=== PATIENT | female | born 1980 | race American Indian/Alaskan Native ===

== ENCOUNTER 2018-12-01 03:51 | Emergency (ER) | payer MEDICARE ==
[2018-12-01] MEDS ORDERED: BANOPHEN PO ONE (04:23)
[2018-12-01] MEDS ORDERED: BENADRYL IM ONE (04:30)
[2018-12-01] MEDS ORDERED: BENADRYL ONE (04:32)
[2018-12-01] MEDS ORDERED: GEODON IM ONE ×2 (06:49→06:51)
[2018-12-01] MEDS ORDERED: WATER FOR INJ Sterile (PF) IM ONE (06:49)
[2018-12-01] MEDS ORDERED: WATER FOR INJ Sterile (PF) 10 ML ONE (06:51)
--- NOTE | 2018-12-01 07:51 | Emergency Department Report ---
ED Psych HPI - General Chief Complaint: Psych Stated Complaint: MH EVAL/SUICIDAL Time Seen by Provider: 12/01/18 06:03 Source: patient Mode of arrival: Ambulatory - History of Present Illness Initial Comments: This is a 38 year old female who was brought in by patent lawyer for apparent psychotic behavior. She was placed in confinement. She had been given Benadryl by the prior emergency physician benign next psychotic. On my encounter the patient is floridly psychotic. She states she is in the "Looney contunium". She has pressurized speech and flight of ideas. She is laying on the floor mattress. She is not mentally competent nor expected to care for herself. Speech is very tangential and filled with ideas of reference and delusions. She has a history of a bipolar psychosis. MD Complaint: other -: unknown Associated Psychiatric Symptoms: racing thoughts, delusions History of same: Yes Quality: constant Improves With: none Worsens With: none Context: other (unknown) - Related Data Home Medications Medication Instructions Recorded Confirmed Last Taken Unobtainable 12/01/18 12/01/18 Unknown Allergies Allergy/AdvReac Type Severity Reaction Status Date / Time apricots Allergy Rash Uncoded 07/24/18 23:11 ED Review of Systems ROS: Stated complaint: MH EVAL/SUICIDAL Other details as noted in HPI Comment: Unobtainable due to pts medical conditions ED Past Medical Hx - Past Medical History Previous Medical History?: Yes Hx Psychiatric Treatment: Yes (schizo affective disorder, bipolar) - Surgical History Past Surgical History?: Yes Additional Surgical History: unknown, unobtainable - Social History Smoking Status: Unknown if ever smoked - Medications Home Medications: Home Medications Medication Instructions Recorded Confirmed Last Taken Type Unobtainable 12/01/18 12/01/18 Unknown History ED Physical Exam - General Limitations: Other (acute psychosis) General appearance: alert, other (agitated) - Head Head exam: Present: atraumatic, normocephalic - Eye Eye exam: Present: normal appearance, PERRL, EOMI. Absent: scleral icterus - ENT ENT exam: Present: mucous membranes moist - Neck Neck exam: Present: normal inspection - Respiratory Respiratory exam: Present: normal lung sounds bilaterally. Absent: respiratory distress - Cardiovascular Cardiovascular Exam: Present: regular rate, normal rhythm. Absent: systolic m urmur, diastolic murmur, rubs, gallop - GI/Abdominal GI/Abdominal exam: Present: soft, normal bowel sounds. Absent: distended, tenderness, guarding, rebound, rigid - Extremities Exam Extremities exam: Present: normal inspection - Back Exam Back exam: Present: normal inspection - Neurological Exam Neurological exam: Present: alert, altered, CN II-XII intact. Absent: motor sensory deficit - Psychiatric Psychiatric exam: Present: agitated, anxious - Skin Skin exam: Present: warm, dry, intact, normal color. Absent: rash ED Course Vital Signs 12/01/18 12/01/18 12/01/18 05:53 05:58 07:57 Temperature 97.5 F L 97.5 F L 97.8 F Pulse Rate 91 H 91 H 76 Respiratory 18 16 Rate Blood Pressure 133/76 Blood Pressure 133/76 128/63 [Left] O2 Sat by Pulse 100 100 100 Oximetry - Reevaluation(s) Reevaluation #1: Given Gina. Thereafter mental health counselor, Mauricio, stated the patient had some suicidal ideation and "wanted to destroy the world". 12/01/18 08:43 12/01/18 08:43 She is placed on a 1013. She's had previous psychiatric admissions and transfer is pending. ED Medical Decision Making - Lab Data Result diagrams: 12/01/18 07:49 12/01/18 07:49 Laboratory Results - last 24 hr 12/01/18 12/01/18 12/01/18 07:49 07:49 07:49 WBC 12.2 H RBC 3.84 Hgb 12.5 Hct 36.7 MCV 96 MCH 33 H MCHC 34 RDW 15.9 H Plt Count 305 Lymph % (Auto) 10.3 L [place] % (Auto) 8.4 H Eos % (Auto) 0.4 Baso % (Auto) 0.6 Lymph # 1.3 [place] # 1.0 H Eos # 0.0 Baso # 0.1 Seg Neutrophils % 80.3 H Seg Neutrophils # 9.8 H Sodium 138 Potassium 4.2 Chloride 97.2 L Carbon Dioxide 26 Anion Gap 19 BUN 12 Creatinine 0.7 Estimated GFR > 60 BUN/Creatinine Ratio 17 Glucose 82 Calcium 9.3 Total Bilirubin 0.60 AST 28 ALT 20 Alkaline Phosphatase 49 Total Creatine Kinase CK-MB (CK-2) CK-MB (CK-2) Rel Index Total Protein 7.3 Albumin 4.5 Albumin/Globulin Ratio 1.6 TSH 1.930 HCG, Qual Salicylates Acetaminophen Plasma/Serum Alcohol 12/01/18 12/01/18 12/01/18 07:49 07:49 07:49 WBC RBC Hgb Hct MCV MCH MCHC RDW Plt Count Lymph % (Auto) [place] % (Auto) Eos % (Auto) Baso % (Auto) Lymph # [place] # Eos # Baso # Seg Neutrophils % Seg Neutrophils # Sodium Potassium Chloride Carbon Dioxide Anion Gap BUN Creatinine Estimated GFR BUN/Creatinine Ratio Glucose Calcium Total Bilirubin AST ALT Alkaline Phosphatase Total Creatine Kinase CK-MB (CK-2) CK-MB (CK-2) Rel Index Total Protein Albumin Albumin/Globulin Ratio TSH HCG, Qual Salicylates < 0.3 L Acetaminophen < 5.0 L Plasma/Serum Alcohol < 0.01 12/01/18 12/01/18 07:49 07:49 WBC RBC Hgb Hct MCV MCH MCHC RDW Plt Count Lymph % (Auto) [place] % (Auto) Eos % (Auto) Baso % (Auto) Lymph # [place] # Eos # Baso # Seg Neutrophils % Seg Neutrophils # Sodium Potassium Chloride Carbon Dioxide Anion Gap BUN Creatinine Estimated GFR BUN/Creatinine Ratio Glucose Calcium Total Bilirubin AST ALT Alkaline Phosphatase Total Creatine Kinase 654 H CK-MB (CK-2) 11.0 H CK-MB (CK-2) Rel Index 1.6 Total Protein Albumin Albumin/Globulin Ratio TSH HCG, Qual Negative Salicylates Acetaminophen Plasma/Serum Alcohol Critical care attestation.: If time is entered above; I have spent that time in minutes in the direct care of this critically ill patient, excluding procedure time. ED Disposition Clinical Impression: Acute psychosis Disposition: DC-01 TO HOME OR SELFCARE Is pt being admited?: No Does the pt Need Aspirin: No Condition: Stable Referrals: CONY ALBERTS MD [Primary Care Provider] - 3-5 Days Time of Disposition: 08:44
[2018-12-01 07:59] LABS: Basophils # (Auto) 0.1 K/mm3 (0.0-0.1); Basophils % (Auto) 0.6 % (0.0-1.8); Eosinophils % (Auto) 0.4 % (0.0-4.3); Hematocrit 36.7 % (30.3-42.9); Hemoglobin 12.5 gm/dl (10.1-14.3); Lymphocytes # (Auto) 1.3 K/mm3 (1.2-5.4); Lymphocytes % (Auto) 10.3 % (13.4-35.0); Mean Corpuscular HGB Conc 34 % (30-34); Mean Corpuscular Volume 96 fl (79-97); Monocytes % (Auto) 8.4 % (0.0-7.3); Platelet Count 305 K/mm3 (140-440); Red Blood Count 3.84 M/mm3 (3.65-5.03); Red Cell Distribution Width 15.9 % (13.2-15.2)
[2018-12-01 08:35] LABS: Alanine Aminotransferase 20 units/L (7-56); Albumin 4.5 g/dL (3.9-5); BUN/Creatinine Ratio 17; Blood Urea Nitrogen 12 mg/dL (7-17); Calcium 9.3 mg/dL (8.4-10.2); Hemolysis Index 10
[2018-12-01] MEDS ORDERED: GEODON IM PRN (08:44)
[2018-12-01] MEDS ORDERED: ATIVAN IM PRN (08:44)
[2018-12-01] MEDS: GEODON PO SCH ×2 (11:13→23:35)
--- NOTE | 2018-12-01 19:12 | Consultation ---
History of Present Illness - Reason for Consult Consult date: 12/01/18 Reason for consult: psychiatric evaluation - Chief Complaint Chief complaint: "who are you" - History of Present Psychiatric Illness 38 year old female who was brought in by adjunct professor of law for apparent psychotic behavior. She was placed in confinement. She states she is in the "Looney continuum". Speech is very tangential and filled with ideas of reference and delusions. She has a history of a bipolar psychosis. She acknowledged being on haldol, risperdal, and depakote in the past. Medications and Allergies Allergies Allergy/AdvReac Type Severity Reaction Status Date / Time apricots Allergy Rash Uncoded 07/24/18 23:11 Home Medications Medication Instructions Recorded Confirmed Last Taken Type Unobtainable 12/01/18 12/01/18 Unknown History Active Meds: Active Medications Lorazepam (Ativan) 1 mg IM Q12H PRN PRN Reason: Agitation Ziprasidone (Geodon) 10 mg IM Q12H PRN PRN Reason: Agitation Ziprasidone (Geodon) 40 mg PO BID RENÉ Last Admin: 12/01/18 11:13 Dose: Not Given Documented by: Past psychiatric history - Past Medical History Past Medical History: other (unable to obtain) - past Psychiatric treatment and history Psych: Bipolar, Psychosis psychiatric treatment history: at [facility] 06/2018 for similar presentation and was transferred to [facility] - Social History Social history: other (unk) Mental Status Exam - Vital signs Last Vital Signs Temp 97.8 F 12/01/18 07:57 Pulse 76 12/01/18 07:57 Resp 16 12/01/18 07:57 BP 128/63 12/01/18 07:57 Pulse Ox 100 12/01/18 07:57 - Exam Orientation: person Affect: agitated Mood: congruent with affect Thought content: delusions, ideas of reference, paranoia Thought Process: Disorganized Perceptions: other (responding to internal stimuli) Speech: pressured Concentration: unable to pay attention Motor activity: restless Level of consciousness: alert Sleep Symptoms: Difficulty Falling Asleep Appetite: decreased Interaction: irritable Results Result Diagrams: 12/01/18 07:49 12/01/18 07:49 Abnormal lab results 12/01/18 12/01/18 12/01/18 Range/Units 07:49 07:49 07:49 WBC 12.2 H (4.5-11.0) K/mm3 MCH 33 H (28-32) pg RDW 15.9 H (13.2-15.2) % Lymph % (Auto) 10.3 L (13.4-35.0) % [place] % (Auto) 8.4 H (0.0-7.3) % [place] # 1.0 H (0.0-0.8) K/mm3 Seg Neutrophils % 80.3 H (40.0-70.0) % Seg Neutrophils # 9.8 H (1.8-7.7) K/mm3 Chloride 97.2 L (98-107) mmol/L Total Creatine Kinase (30-135) units/L CK-MB (CK-2) (0.0-4.0) ng/mL Salicylates < 0.3 L (2.8-20.0) mg/dL Acetaminophen (10.0-30.0) ug/mL 12/01/18 12/01/18 Range/Units 07:49 07:49 WBC (4.5-11.0) K/mm3 MCH (28-32) pg RDW (13.2-15.2) % Lymph % (Auto) (13.4-35.0) % [place] % (Auto) (0.0-7.3) % [place] # (0.0-0.8) K/mm3 Seg Neutrophils % (40.0-70.0) % Seg Neutrophils # (1.8-7.7) K/mm3 Chloride (98-107) mmol/L Total Creatine Kinase 654 H (30-135) units/L CK-MB (CK-2) 11.0 H (0.0-4.0) ng/mL Salicylates (2.8-20.0) mg/dL Acetaminophen < 5.0 L (10.0-30.0) ug/mL All other labs normal. Assessment and Plan Assessment and plan: Impression: psychosis neg UDS and etoh differential: bipolar with psychosis schizophrenia schizoaffective disorder ck 656 Recommendation/Plan: Continue 1013. encourage fluids ER physician started marisol check ck 12/02 Dispo: inpatient psy services. staffed with Dr. Myles
[2018-12-02] MEDS: GEODON PO SCH ×3 (02:04→11:00)
[2018-12-02 05:21] LABS: Bacteria,Urine 1+ /HPF (Negative); Bilirubin,Urine NEG (Negative); Blood,Urine NEG (Negative); Color,Urine Yellow (Yellow); Mucus,Urine FEW /HPF; Protein,Urine <15 mg/dL mg/dL (Negative); Urobilinogen,Urine < 2.0 mg/dL (<2.0)
[2018-12-02 05:23] LABS: WBC,Urine > 182.0 /HPF (0.0-6.0)
[2018-12-02 05:25] LABS: Amphetamine Screen,Urine PRESUMPTIVE NEGATIVE; Benzodiazepines Screen,Urine PRESUMPTIVE NEGATIVE; Cannabinoid Screen,Urine PRESUMPTIVE NEGATIVE; Cocaine Screen,Urine PRESUMPTIVE NEGATIVE; Methadone Screen,Urine PRESUMPTIVE NEGATIVE; Opiate Screen,Urine PRESUMPTIVE NEGATIVE
[2018-12-02] MEDS ORDERED: KEFLEX ONE (12:31)
--- NOTE | 2018-12-02 12:59 | Progress Note ---
Subjective - Reason for Consult Consult date: 12/02/18 Reason for consult: Psychiatry Follow-up - Chief Complaint Chief complaint: 'i have nothing to say" 38 y.o. AA female who presented to the ER for bizarre behavior. Today the patient was uncooperative during the assessment. She refused to answer any question before going to the restroom. No gestures of SI/HI's. Mental Status Exam - Vital signs Last Vital Signs Temp 98.0 F 12/02/18 03:54 Pulse 79 12/02/18 03:54 Resp 20 12/02/18 03:54 BP 117/50 12/02/18 03:54 Pulse Ox 98 12/02/18 03:54 - Exam Narrative exam: Unable to complete the MSE because of the patient's condition. Assessment and Plan Impression: Unspecified Psychosis. Today the patient was uncooperative during the assessment. UDS is negative. DDx: Schizophrenia, Bipolar DO with psychosis Recommendations/Plan: Continue 1013 and Geodon 40 mg PO BID for psychosis. A ttempted to discuss the possible metabolic side effects of Geodon with the patient, Give Geodon with food. Dispo: The patient was accepted at [facility] pending transport. Will staff with Dr Yari Myles.
[2018-12-02] MEDS ORDERED: KEFLEX PO ONE (13:00)
[2018-12-02 17:49] VITALS: BP 103/51
== END 2018-12-02 18:30 | disposition home or self-care (01) ==
LOC: EEVIPCON 03:51 → ED 03:51
DX: F23 Brief psychotic disorder (principal); F31.9 Bipolar disorder, unspecified; F25.9 Schizoaffective disorder, unspecified; Z98.890 Other specified postprocedural states; Z91.018 Allergy to other foods
CPT/HCPCS: 36415; 80053; 80307; 81001; 82550; 82553; 84443; 84703; 85025; 96372; 99284; G0480; J1200; J3486; 80320; Q0163

== ENCOUNTER 2020-11-23 17:11 | Emergency (ER) | payer MEDICARE ==
--- NOTE | 2020-11-23 19:00 | Emergency Department Report ---
HPI - General Chief Complaint: Psych Time Seen by Provider: 11/23/20 18:27 - HPI HPI: This is a 40-year-old -E[place]ian female presents to the emergency department with a complaint of suicidal ideations, homicidal ideations, and also is exhibiting some signs of psychosis. The patient says that she wants to harm the people in her personal halfway. The patient says that she has a history of schizoaffective disorder and bipolar disorder. She says she is compliant with her medications which include Depakote, Abilify and Zyprexa. However, the patient says that she is not getting the normal doses that were prescribed to her and thinks that the personal halfway staff are giving her different or more medication in hopes of harming her. The patient also says that she "lives in the [facility] When asked what that means, the patient goes into some rambling speech that does not make sense. When asked what she wants to harm herself she started naming letters of the alphabet, had some more rambling speech, and then said "wouldnt you want to." ED Past Medical Hx - Past Medical History Previous Medical History?: Yes Hx Psychiatric Treatment: Yes - Surgical History Additional Surgical History: unknown, unobtainable - Social History Substance Use Type: Marijuana, Methamphetamines - Medications Home Medications: Home Medications Medication Instructions Recorded Confirmed Last Taken Type Unobtainable 12/01/18 12/01/18 Unknown History ED Review of Systems ROS: Stated complaint: MENTAL HEALTH SUCIDAL Other details as noted in HPI Comment: All other systems reviewed and negative Constitutional: denies: chills, fever Respiratory: denies: cough, shortness of breath Cardiovascular: denies: chest pain, palpitations Gastrointestinal: denies: abdominal pain, vomiting Musculoskeletal: denies: back pain, joint swelling Neurological: denies: headache, weakness Psychiatric: homicidal thoughts, suicidal thoughts Physical Exam - Physical Exam Vital Signs: Vital Signs 11/23/20 17:47 Temperature 98.6 F Pulse Rate 103 H Respiratory 18 Rate Blood Pressure 150/89 [Right] O2 Sat by Pulse 97 Oximetry Physical Exam: GENERAL: The patient is well-developed well-nourished. HENT: Normocephalic. Atraumatic. Patient has moist mucous membranes. EYES: Extraocular motions are intact. NECK: Supple. Trachea is midline. CHEST/LUNGS: Clear to auscultation. There is no respiratory distress noted. HEART/CARDIOVASCULAR: Regular. There is no tachycardia. There is no murmur. ABDOMEN: Abdomen is soft, nontender. Patient has normal bowel sounds. There is no abdominal distention. SKIN: Skin is warm and dry. NEURO: The patient is awake, alert, and cooperative. Normal speech. Cranial nerves II through XII grossly intact. MUSCULOSKELETAL: There is no tenderness or deformity. There is no limitation range of motion. PSYCH: Patient exhibits rambling tangential speech/thoughts. ED Course Vital Signs 11/23/20 17:47 Temperature 98.6 F Pulse Rate 103 H Respiratory 18 Rate Blood Pressure 150/89 [Right] O2 Sat by Pulse 97 Oximetry ED Medical Decision Making - Lab Data Result diagrams: 11/23/20 18:37 11/23/20 18:37 Lab Results 11/23/20 11/23/20 11/23/20 Range/Units 18:37 18:37 18:37 WBC 9.9 (4.5-11.0) K/mm3 RBC 3.68 (3.65-5.03) M/mm3 Hgb 12.3 (10.1-14.3) gm/dl Hct 35.8 (30.3-42.9) % MCV 97 (79-97) fl MCH 33 H (28-32) pg MCHC 34 (30-34) % RDW 14.6 (13.2-15.2) % Plt Count 355 (140-440) K/mm3 Lymph % (Auto) 27.8 (13.4-35.0) % [place] % (Auto) 9.2 H (0.0-7.3) % Eos % (Auto) 1.5 (0.0-4.3) % Baso % (Auto) 0.4 (0.0-1.8) % Lymph # (Auto) 2.7 (1.2-5.4) K/mm3 [place] # (Auto) 0.9 H (0.0-0.8) K/mm3 Eos # (Auto) 0.2 (0.0-0.4) K/mm3 Baso # (Auto) 0.0 (0.0-0.1) K/mm3 Seg Neutrophils % 61.1 (40.0-70.0) % Seg Neutrophils # 6.0 (1.8-7.7) K/mm3 Sodium 134 L (137-145) mmol/L Potassium 4.0 (3.6-5.0) mmol/L Chloride 97.1 L (98-107) mmol/L Carbon Dioxide 23 (22-30) mmol/L Anion Gap 18 mmol/L BUN 13 (7-17) mg/dL Creatinine 0.6 (0.6-1.2) mg/dL Estimated GFR > 60 ml/min BUN/Creatinine Ratio 22 % Glucose 79 (65-100) mg/dL Calcium 8.6 (8.4-10.2) mg/dL HCG, Qual (Negative) Plasma/Serum Alcohol < 0.01 (0-0.07) % 11/23/20 Range/Units 18:37 WBC (4.5-11.0) K/mm3 RBC (3.65-5.03) M/mm3 Hgb (10.1-14.3) gm/dl Hct (30.3-42.9) % MCV (79-97) fl MCH (28-32) pg MCHC (30-34) % RDW (13.2-15.2) % Plt Count (140-440) K/mm3 Lymph % (Auto) (13.4-35.0) % [place] % (Auto) (0.0-7.3) % Eos % (Auto) (0.0-4.3) % Baso % (Auto) (0.0-1.8) % Lymph # (Auto) (1.2-5.4) K/mm3 [place] # (Auto) (0.0-0.8) K/mm3 Eos # (Auto) (0.0-0.4) K/mm3 Baso # (Auto) (0.0-0.1) K/mm3 Seg Neutrophils % (40.0-70.0) % Seg Neutrophils # (1.8-7.7) K/mm3 Sodium (137-145) mmol/L Potassium (3.6-5.0) mmol/L Chloride (98-107) mmol/L Carbon Dioxide (22-30) mmol/L Anion Gap mmol/L BUN (7-17) mg/dL Creatinine (0.6-1.2) mg/dL Estimated GFR ml/min BUN/Creatinine Ratio % Glucose (65-100) mg/dL Calcium (8.4-10.2) mg/dL HCG, Qual Negative (Negative) Plasma/Serum Alcohol (0-0.07) % - Medical Decision Making This patient presents for a mental health evaluation. She expresses both suicidal and homicidal ideations. However, the patient also exhibits signs of acute psychosis. She has paranoia, delusions and some rambling tangential thoughts and speech. For these reasons the patient has been made a 1013 and placed on an ED hold. Labs have been unremarkable thus far including CBC, metabolic panel, blood alcohol level, and the patient is not . I am still waiting for a urine sample for both urinalysis and UDS. However, I do not anticipate any results from either lab test that would make the patient not medically cleared for psychiatric placement. If she has a urinary tract infection, antibiotics will be added. Vital signs have been reassuring throughout her ED course thus far. I consider this patient medically cleared for psychiatric placement. Critical Care Time: No Critical care attestation.: If time is entered above; I have spent that time in minutes in the direct care of this critically ill patient, excluding procedure time. ED Disposition Clinical Impression: Acute psychosis, Suicidal ideations, Homicidal ideations Disposition: DC/TX-65 PSY HOSP/PSY UNIT Is pt being admited?: No Condition: Stable Time of Disposition: 00:26
[2020-11-23 19:10] LABS: Blood Urea Nitrogen 13 mg/dL (7-17); Calcium 8.6 mg/dL (8.4-10.2); Hemolysis Index 4
[2020-11-23 19:11] LABS: BUN/Creatinine Ratio 22
[2020-11-23 19:29] LABS: Basophils % (Auto) 0.4 % (0.0-1.8); Eosinophils # (Auto) 0.2 K/mm3 (0.0-0.4); Eosinophils % (Auto) 1.5 % (0.0-4.3); Hematocrit 35.8 % (30.3-42.9); Hemoglobin 12.3 gm/dl (10.1-14.3); Lymphocytes # (Auto) 2.7 K/mm3 (1.2-5.4); Lymphocytes % (Auto) 27.8 % (13.4-35.0); Mean Corpuscular HGB Conc 34 % (30-34); Mean Corpuscular Volume 97 fl (79-97); Monocytes # (Auto) 0.9 K/mm3 (0.0-0.8); Monocytes % (Auto) 9.2 % (0.0-7.3); Platelet Count 355 K/mm3 (140-440); Red Blood Count 3.68 M/mm3 (3.65-5.03); Red Cell Distribution Width 14.6 % (13.2-15.2)
[2020-11-24 03:45] LABS: Bilirubin,Urine NEG (Negative); Blood,Urine NEG (Negative); Color,Urine Yellow (Yellow); Mucus,Urine 1+ /HPF; Protein,Urine <15 mg/dL mg/dL (Negative)
[2020-11-24 03:53] LABS: Amphetamine Screen,Urine Negative; Benzodiazepines Screen,Urine Negative; Cocaine Screen,Urine Negative; Methadone Screen,Urine Negative; Opiate Screen,Urine Negative
[2020-11-24 04:04] LABS: Cannabinoid Screen,Urine Positive
--- NOTE | 2020-11-24 08:02 | Consultation ---
History of Present Illness - Reason for Consult Consult date: 11/24/20 Reason for consult: MHE Requesting physician: LAYLA JOLLY - History of Present Psychiatric Illness Per ED Provider: This is a 40-year-old -Togolese female presents to the emergency department with a complaint of suicidal ideations, homicidal ideations, and also is exhibiting some signs of psychosis. The patient says that she wants to harm the people in her personal usp. The patient says that she has a history of schizoaffective disorder and bipolar disorder. She says she is compliant with her medications which include Depakote, Abilify and Zyprexa. However, the patient says that she is not getting the normal doses that were prescribed to her and thinks that the personal usp staff are giving her different or more medication in hopes of harming her. The patient also says that she "lives in the [facility]." When asked what that means, the patient goes into some rambling speech that does not make sense. When asked what she wants to harm herself she started naming letters of the alphabet, had some more rambling speech, and then said "wouldnt you want to." PSYCH HPI Patient is a 40-year-old -Togolese female with past psychiatric history of schizoaffective disorder and also bipolar, who is homeless presented to the ED with chief complaint of suicidal ideations and also behavior. Patient presented as very delusional and obsessed she is also very tangential to questions being asked and is seen talking about someone not treating her with respect even though she had made that person the richest man in the whole world. She states that she went to [facility], and that she has a universe [employer] and she believes something is coming to the studies "in the year 1781 from now. PAST PSYCHIATRIC HISTORY Diagnoses: schizoaffective disorder and bipolar disorder Suicide attempts or Self-harm behavior: Prior psychiatric hospitalizations: Substance Abuse history: Previous psychiatric medications tried: Outpatient treatment: PAST MEDICAL HISTORY: Family Psychiatric History: None reported or documented SOCIAL HISTORY Marital Status: Living Arrangements: n/a Employment Status: n/a Access to guns/weapons: Education:n/a History of Abuse: n/a Legal History: n/a REVIEW OF SYSTEMS ROS cannot be reliably obtained from the patient due to her confusion MENTAL STATUS EXAMINATION General Appearance and Behavior: Age appropriate, good hygiene, not wearing appropriate clothes, good eye contact, cooperative polite with questioning. Cooperation: Participating/engaged Psychomotor Behavior: Psychomotor normal Mood: Good Affect and affective range: euthymic, euphoric Thought Process:Circumstantial, tangential illogical, Thought Content: Flight of ideas, Illogical, Grandiose, Speech: Normal volume at times Intellectual Functioning: Average Suicidal Ideation: Denies SI Homicidal Ideation: Denies HIl Impulse Control: Impaired Insight and Judgment: Limited insight and judgment Memory: Normal, Attention: Divided attention impaired Orientation: Alert, oriented, Assessment and Plan - Psychiatric problem (1) Schizophrenia Current Visit: Yes Status: Acute Treatment Plan MEDICATIONS: Risks, benefits and alternatives of medications discussed with the patient, questions answered and consent obtained from patient. PSYCHOTHERAPY: Supportive psychotherapy provided MEDICAL: Per primary team DELIRIUM PRECAUTIONS: Please re-orient patient frequently, keep lights on during the day, and minimize benzodiazepines and opiates as these medications could worsen patient's confusion. MAJOR DONOR COORDINATOR: DISPOSITION: Do Recommend acute inpatient psychiatric hospitalization at this time. Case discussed with Dr. Fregoso who agrees with current disposition LEGAL STATUS: 1013 FOLLOW-UP: Will follow Thank you for the consult. Please contact with any questions and/or concerns. Medications and Allergies Allergies Allergy/AdvReac Type Severity Reaction Status Date / Time apricots Allergy Rash Uncoded 07/24/18 23:11 Home Medications Medication Instructions Recorded Confirmed Last Taken Type Unobtainable 12/01/18 12/01/18 Unknown History Mental Status Exam - Vital signs Last Vital Signs Temp 97.6 F 11/24/20 02:21 Pulse 79 11/24/20 02:21 Resp 16 11/24/20 02:21 BP 104/57 11/24/20 02:21 Pulse Ox 98 11/24/20 02:21 Results Result Diagrams: 11/23/20 18:37 11/23/20 18:37 Abnormal lab results 11/23/20 11/23/20 Range/Units 18:37 18:37 MCH 33 H (28-32) pg [place] % (Auto) 9.2 H (0.0-7.3) % [place] # (Auto) 0.9 H (0.0-0.8) K/mm3 Sodium 134 L (137-145) mmol/L Chloride 97.1 L (98-107) mmol/L All other labs normal. Assessment and Plan - Psychiatric problem (1) Schizophrenia Current Visit: Yes Status: Acute
[2020-11-24 09:30] VITALS: BP 121/63
[2020-11-24] MEDS ORDERED: VALPROIC ACID 250 MG CAP PO SCH (11:00)
--- NOTE | 2020-11-24 12:03 | Event Note ---
Date: 11/24/20 40-year-old female with history of schizoaffective disorder who presented to the ED on November 23 with suicidal ideation and psychosis. S: Patient is seen walking the halls and is very conversive. She reports that she has no physical complaints at this time. When asked about whether she is experiencing hallucinations she says "that is natural" O: Vital Signs - 24 hr 11/23/20 11/23/20 11/24/20 17:47 20:49 02:21 Temperature 98.6 F 98.2 F 97.6 F Pulse Rate 103 H 85 79 Respiratory 18 18 16 Rate Blood Pressure Blood Pressure 150/89 109/61 104/57 [Right] O2 Sat by Pulse 97 98 98 Oximetry 11/24/20 11/24/20 08:24 08:25 Temperature 97.6 F Pulse Rate 76 72 Respiratory 18 Rate Blood Pressure 121/63 Blood Pressure [Right] O2 Sat by Pulse 99 99 Oximetry Vitals reviewed and are within normal limits. GENERAL: Well developed. Well nourished. No acute distress HEENT: Normocephalic. Moist mucous membranes. EYES: Extraocular movements are intact. NECK: Supple. Trachea is midline. LUNGS: Nonlabored breathing. Equal chest rise bilaterally. Clear to auscultation bilaterally. HEART/CARDIOVASCULAR: Regular rate and rhythm. No murmurs or rubs. ABDOMEN: Abdomen is soft and nondistended. SKIN: Skin is warm and dry NEURO: Patient is awake, alert, and oriented. No focal deficits. Normal speech. Normal gait. A/P: 40-year-old female with schizoaffective disorder presenting with acute psychosis and suicidal ideation. Home psychiatric medications have been reconciled and restarted. There are no active medical issues at this time. Evaluated by mental health who recommends further inpatient treatment. Awaiting facility placement.
== END 2020-11-24 19:17 ==
LOC: ED 17:11
DX: F23 Brief psychotic disorder (principal); Z20.822 Contact with and (suspected) exposure to COVID-19; R45.850 Homicidal ideations; R45.851 Suicidal ideations; Z91.018 Allergy to other foods
CPT/HCPCS: 36415; 80048; 80307; 81001; 84703; 85025; 99285; U0003; 80320; G0480